=== PATIENT | female | born 1950 | race African-American/Black ===

== ENCOUNTER 2022-12-11 07:29 | Day surgery (SDC) | payer OTHER ==
[2022-12-07 14:55] VITALS: BMI 28.3
[2022-12-11] MEDS ORDERED: PROPOFOL 120 ML ONE (07:49)
[2022-12-11] MEDS ORDERED: LIDOCAINE HCL/PF 2% SDV 5ML VIAL ONE (07:49)
[2022-12-11 09:28] VITALS: TEMP 97.8
[2022-12-11 13:50] VITALS: BP 110/65; PULSE 72; RESP 17
== END 2022-12-11 09:30 | disposition home or self-care (01) ==
LOC: FASU-ENDO 07:29
PROVIDERS: ATTEND Internal Medicine Gastroenterology
PROC: 0DBN8ZX Excision of Sigmoid Colon, Via Natural or Artificial Opening Endoscopic, Diagnostic (ICD-10-PCS; principal; 2022-12-11 08:37)
DX: Z12.11 Encounter for screening for malignant neoplasm of colon (principal); K63.5 Polyp of colon; K57.30 Diverticulosis of large intestine without perforation or abscess without bleeding
CPT/HCPCS: 88305-TC